=== PATIENT | female | born 1970 | race Caucasian/White ===

== ENCOUNTER 2020-12-15 10:40 | Emergency (ER) | payer OTHER ==
[2020-12-15 11:15] VITALS: BP 132/90; PULSE 67; TEMP 98.1; BMI 19.3
== END 2020-12-15 12:27 | disposition home or self-care (01) ==
LOC: JERFT 10:40
PROC: 0HQLXZZ Repair Left Lower Leg Skin, External Approach (ICD-10-PCS; principal; 2020-12-15)
DX: S81.812A Laceration without foreign body, left lower leg, initial encounter (principal); W26.8XXA Contact with other sharp object(s), not elsewhere classified, initial encounter
CPT/HCPCS: 99282-25

== ENCOUNTER 2025-01-25 12:16 | Emergency (ER) | payer OTHER ==
[2025-01-25 12:24] VITALS: RESP 18; TEMP 98.1; BMI 27.7
[2025-01-25] MEDS ORDERED: ACETAMINOPHEN INJECTION 100 ML ONE (13:29)
[2025-01-25] MEDS: SODIUM CHLORIDE 0.9% 500 ML INFUS.BAG IV ONE (13:42)
[2025-01-25] MEDS: ACETAMINOPHEN 1000 MG/100 ML BAG IVPB ONE (13:42)
[2025-01-25 13:48] LABS: ABSOLUTE IMMATURE GRANULOCYTES 0.01 x10^3/uL (0.0-0.031); BASOPHILS # 0.08 x10^3/uL (0.01-0.08); EOSINOPHIL % 1.3 % (0.7-5.8); EOSINOPHILS # 0.10 x10^3/uL (0.04-0.36); MCHC 32.2 g/dl (32.2-35.5); MEAN CELL VOLUME 86.3 fl (79.4-94.8); MEAN PLT VOLUME 10.8 fl (9.4-12.3); MONOCYTE # 0.83 x10^3/uL (0.24-0.86); MONOCYTE % 10.7 % (4.7-12.5); RDW 13.6 % (12.3-16.6)
[2025-01-25 13:49] LABS: URINE APPEARANCE CLEAR; URINE BILIRUBIN NEGATIVE (NEGATIVE); URINE COLOR YELLOW; URINE GLUCOSE (UA) NEGATIVE (NEGATIVE); URINE KETONE NEGATIVE (NEGATIVE); URINE LEUK ESTERASE NEGATIVE (NEGATIVE); URINE NITRITE NEGATIVE (NEGATIVE); URINE PROTEIN NEGATIVE (NEGATIVE); URINE UROBILINOGEN 0.2 mg/dL (0.2-1.0)
[2025-01-25 13:56] LABS: INR 1.07 (0.83-1.09); PROTHROMBIN TIME (PATIENT) 11.8 SEC (9.7-13.0)
[2025-01-25 13:59] LABS: ACTIVATED PTT 26.3 SECONDS (25.2-36.5)
[2025-01-25 14:05] LABS: GLUCOSE,RANDOM 102.0 mg/dL (74-106)
[2025-01-25 14:06] LABS: CO2 25.0 mmol/L (21-32); TOT PROT 7.1 g/dl (6.4-8.2)
[2025-01-25 14:08] LABS: ALK PHOS 56.0 U/L (40-150)
[2025-01-25 14:11] LABS: CREATININE 0.97 mg/dL (0.55-1.3); SGOT/AST 22.0 U/L (5-34); SGPT/ALT 18.0 U/L (0-55)
[2025-01-25 14:31] LABS: HCV DIAGNOSTIC IN-HOUSE W/RFLX NON-REACTIVE (NONREACTIVE)
[2025-01-25 14:32] LABS: HIV INTERPRETATION NEGATIVE (NEGATIVE)
[2025-01-25] MEDS: morphine CARPU-JECT 4 MG/1 ML DISP.SYRIN IVPUSH ONE (15:27)
[2025-01-25 16:49] VITALS: BP 126/88; PULSE 82
== END 2025-01-25 16:49 | disposition home or self-care (01) ==
LOC: JER 12:16
PROC: 3E033NZ Introduction of Analgesics, Hypnotics, Sedatives into Peripheral Vein, Percutaneous Approach (ICD-10-PCS; principal; 2025-01-25)
PROC: 3E033NZ Introduction of Analgesics, Hypnotics, Sedatives into Peripheral Vein, Percutaneous Approach (ICD-10-PCS; 2025-01-25)
DX: K52.9 Noninfective gastroenteritis and colitis, unspecified (principal); R10.12 Left upper quadrant pain; R68.83 Chills (without fever); R39.852 Costovertebral (angle) tenderness, left side; N32.9 Bladder disorder, unspecified
CPT/HCPCS: 36415; 71046-TC-FY; 74177-TC; 80053; 81003; 83690; 83735; 84484; 85025; 85610; 85730; 86803; 86850; 86900; 86901; 87086; 87389; 93005; 93010; 99285-25